=== PATIENT | female | born 1950 | race Two or more races ===

== ENCOUNTER 2020-03-23 07:12 | Outpatient (CLI) | payer OTHER | END 2020-03-23 07:19 | disposition home or self-care (01) | LOC: TOM 07:12 | PROVIDERS: ATTEND Internal Medicine Gastroenterology | DX: K56.600 Partial intestinal obstruction, unspecified as to cause (principal) ==

== ENCOUNTER 2021-08-20 07:08 | Outpatient (CLI) | payer OTHER | END 2021-08-20 07:18 | disposition home or self-care (01) | LOC: MRI 07:08 | PROVIDERS: ATTEND Specialist | DX: M75.51 Bursitis of right shoulder (principal) | CPT/HCPCS: 73221 ==

== ENCOUNTER 2022-01-14 07:06 | Outpatient (CLI) | payer OTHER | END 2022-01-14 07:18 | disposition home or self-care (01) | LOC: RAD 07:06 | PROVIDERS: ATTEND Orthopaedic Surgery | DX: S83.201A Bucket-handle tear of unspecified meniscus, current injury, left knee, initial encounter (principal); M25.561 Pain in right knee; M25.562 Pain in left knee | CPT/HCPCS: 73721 ==

== ENCOUNTER 2022-04-08 09:42 | Outpatient (CLI) | payer OTHER | END 2022-04-08 09:48 | disposition home or self-care (01) | LOC: RAD 09:42 | PROVIDERS: ATTEND Orthopaedic Surgery | DX: R07.9 Chest pain, unspecified (principal) ==

== ENCOUNTER 2023-05-13 09:54 | Outpatient (CLI) | payer OTHER | END 2023-05-13 10:05 | disposition home or self-care (01) | LOC: SONOGRAMA 09:54 | DX: D17.23 Benign lipomatous neoplasm of skin and subcutaneous tissue of right leg (principal) ==